=== PATIENT | female | born 1985 | race Caucasian/White ===

== ENCOUNTER 2016-10-18 11:11 | Emergency (ER) | payer MEDICAID ==
[2016-10-18 11:42] VITALS: TEMP 98.4; BMI 26.2
[2016-10-18] MEDS ORDERED: OXYCODONE HCL 5 MG TABLET PO ONE (13:53)
[2016-10-18] MEDS ORDERED: IBUPROFEN 600 MG TAB PO ONE (13:53)
[2016-10-18 14:15] LABS: AUTOMATED BASOPHIL 0.4 % (0-2); AUTOMATED EOSINOPHIL 1.6 % (0-5); AUTOMATED LYMPH 38.7 % (17-44); AUTOMATED MONOCYTE 5.5 % (3-10); AUTOMATED NEUTROPHIL 53.8 % (45-76); MPV 9.6 fL (7.4-10.4)
[2016-10-18 14:24] LABS: AMORPHOUS 2+
[2016-10-18 14:27] LABS: LEUKOCYTES/URINE NEG (NEGATIVE); NITRITE/URINE NEG (NEGATIVE); URINE OCCULT BLOOD 1+ (NEG/TRACE)
[2016-10-18 14:31] LABS: BLOOD UREA NITROGEN 14 MG/DL (7-17); CALCIUM 9.1 MG/DL (8.4-10.2); CALCULATED OSMOLALITY 271 MOs/Kg (270-290); CHLORIDE 104 mEq/L (98-107); GLUCOSE 86 MG/DL (70-99); SODIUM LEVEL 141 mEq/L (137-146); TOTAL PROTEIN 7.6 G/DL (6.3-8.2)
--- NOTE | 2016-10-18 15:32 | DIRPT ---
CLINICAL DATA: 31-year-old female with pelvic pain and abnormal bleeding in the middle of her cycle. Initial encounter. EXAM: TRANSABDOMINAL AND TRANSVAGINAL ULTRASOUND OF PELVIS DOPPLER ULTRASOUND OF OVARIES TECHNIQUE: Both transabdominal and transvaginal ultrasound examinations of the pelvis were performed. Transabdominal technique was performed for global imaging of the pelvis including uterus, ovaries, adnexal regions, and pelvic cul-de-sac. It was necessary to proceed with endovaginal exam following the transabdominal exam to visualize the ovaries. Color and duplex Doppler ultrasound was utilized to evaluate blood flow to the ovaries. COMPARISON: CT Abdomen and Pelvis 08/27/2008 FINDINGS: Uterus Measurements: 10.2 x 4.9 x 5.9 cm. No fibroids or other mass visualized. Endometrium Thickness: 7 mm. No focal abnormality visualized. Right ovary Measurements: 6.4 x 3.5 x 4.4 cm oval 6.4 cm simple cyst (image 38). Additional small follicles. Left ovary Measurements: 2.4 x 1.1 x 3.2 cm. Normal appearance/no adnexal mass. Pulsed Doppler evaluation of both ovaries demonstrates normal low-resistance arterial and venous waveforms. Other findings No abnormal free fluid. IMPRESSION: 1. No evidence of ovarian torsion. Uterus appears normal. 2. Large but simple appearing right ovarian cyst, 6.4 cm. Simple cysts regardless of patient age are almost certainly benign. In reproductive age women simple cysts between 5 and 7 cm are recommended for yearly ultrasound follow-up. This recommendation follows the consensus statement: Management of Asymptomatic Ovarian and Other Adnexal Cysts Imaged at US: Society of Radiologists in Ultrasound Consensus Conference Statement. Radiology 2010; 256:943-954. Electronically Signed By: Ene Nixon M.D. On: 10/18/2016 15:29
--- NOTE | 2016-10-18 15:33 | EDPRACDOC ---
- General Information Chief Complaint: Vaginal Bleeding Stated Complaint: VAGINAL BLEEDING Time Seen by Provider: 10/18/16 13:03 Information Source: Patient Home Medications: Home Medications Ibuprofen 600 mg PO TID #20 tablet 10/18/16 Oxycodone Immediate Release [Oxycodone Immediate Release (OxyIR)] 5 mg PO Q6H PRN #30 tab 10/18/16 Allergies/Adverse Reactions: Allergies Allergy/AdvReac Type Severity Reaction Status Date / Time Penicillins Allergy Hives* Verified 10/18/16 11:42 allantoin [From Orajel] AdvReac Severe Hives* Verified 10/18/16 11:42 benzalkonium chloride AdvReac Severe Hives* Verified 10/18/16 11:42 [From Orajel] benzocaine [From Orajel] AdvReac Severe Hives* Verified 10/18/16 11:42 carbamide peroxide AdvReac Severe Hives* Verified 10/18/16 11:42 [From Orajel] zinc chloride [From Orajel] AdvReac Severe Hives* Verified 10/18/16 11:42 - History of Present Illness Onset: 399 HPI: PT PRESENTS TODAY WITH LOWER ABDOMINAL PAIN X WEEKS. 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 STATES THAT SHE HAS HAD DYSPAREUNIA SINCE THEN. CURRENTLY ON MENSES TWICE THIS MONTH. DENIES FEVER, CP, SHOB, N/V/D, DYSURIA. PT TEARFUL AND VERY CONCERNED ABOUT CANCER. Description: Reports: Spontaneous, Menstrual Location: Reports: Internal Vagina Control Method: Reports: Other Pain Severity: Moderate Vaginal Bleeding Description: Reports: Dark Associated Signs & Symptoms: Reports: Dyspareunia, Vaginal Bleeding - Treatment Prior to ED Arrival Reported Medications/Treatment LEGAL INSTRUMENTS EXAMINER Ibuprofen/Acetaminophen (Dose/ MOTRIN 400MG-0400 Time) ED Past Medical History - History Reviewed Yes Nurses notes reviewed and agree except as marked - Patient Medical History Respiratory History: Reports: Asthma Psychological History: Reports: Anxiety, Bipolar Disorder. Denies: Depression - Social Medical History Smoking Status: Never smoker EDM Review of Systems - Review of Systems ROS Negative Except as Marked: Yes All systems reviewed and were negative except as marked Constitutional: No Symptoms Reported Respiratory: No Symptoms Reported Cardiovascular: No Symptoms Reported Gastrointestinal: Nausea, Pain Genitourinary: Bleeding, Other (HPV) Neurological: No Symptoms Reported Musculoskeletal: No Symptoms Reported Integumentary: No Symptoms Reported - Physical Exam Constitutional: Alert, Distress Oriented to: Time, Person, Place Last recorded Vital Signs: Last Vital Signs Temp 98.4 F 10/18/16 11:39 Pulse 84 10/18/16 11:39 Resp 18 10/18/16 11:39 BP 114/73 10/18/16 11:39 Pulse Ox 97 10/18/16 11:39 Oxygen Pulse Oxygen Saturation 97 O2 Device Oxygen Flow Rate Fraction of Inspired Oxygen ( FIO2) - HEENT Head: Normal Eye Exam: Normal Neck: Normal, Denies Pain, Midline - Respiratory/Cardiovascular Respiratory: Normal - CTA Cardiovascular: Normal - GI Palpation: Normal Tenderness: Moderate, RLQ, LLQ - Bladder: Normal External: Normal Vagina: Normal Cervix: Tenderness, Other (NOTED VESICULAR LIKE LESIONS ON THE CERVICAL OS; NO BLEEDING NOTED) Adnexa: Bilateral: Tender - Musculoskeletal Back: Normal Extremities: Normal - Integumentary Skin: Normal Lymphatics: Normal - Neurologic Cerebellar: Normal Mood Description: Normal Thought: Coherent Perception: Normal ED Vaginal Exam External: Normal Vaginal Exam: Normal Vaginal Lesions: None Vaginal Discharge: None Cervix: Tenderness, Other Uterus: Normal size Adnexa: Bilateral, Tenderness - Results 10/18/16 14:00 10/18/16 14:00 WBC 8.5 xk/uL (3.8-10.8) 10/18/16 14:00 RBC 4.41 xM/uL (4.20-5.40) 10/18/16 14:00 Hgb 13.3 g/dL (12.0-16.0) 10/18/16 14:00 Hct 39.3 % (36-47) 10/18/16 14:00 MCV 89 fL (81-99) 10/18/16 14:00 MCH 30.2 pg (27-32) 10/18/16 14:00 MCHC 33.9 g/dl (33-36) 10/18/16 14:00 RDW 14.5 % (11.5-14.5) 10/18/16 14:00 Plt Count 279 xk/uL (130-400) 10/18/16 14:00 MPV 9.6 fL (7.4-10.4) 10/18/16 14:00 Neut % (Auto) 53.8 % (45-76) 10/18/16 14:00 Lymph % (Auto) 38.7 % (17-44) 10/18/16 14:00 [place] % (Auto) 5.5 % (3-10) 10/18/16 14:00 Eos % (Auto) 1.6 % (0-5) 10/18/16 14:00 Baso % (Auto) 0.4 % (0-2) 10/18/16 14:00 Absolute Neuts (auto) 4.51 xk/uL (1.7-8.2) 10/18/16 14:00 Absolute Lymphs (auto) 3.23 xk/uL (0.65-4.75) 10/18/16 14:00 Sodium 141 mEq/L (137-146) 10/18/16 14:00 Potassium 4.1 mEq/L (3.5-5.1) 10/18/16 14:00 Chloride 104 mEq/L (98-107) 10/18/16 14:00 Carbon Dioxide 26 mMOL/L (22-33) 10/18/16 14:00 Anion Gap 15 mEq/L (8-16) 10/18/16 14:00 BUN 14 MG/DL (7-17) 10/18/16 14:00 Creatinine 0.90 MG/DL (0.52-1.04) 10/18/16 14:00 Estimated GFR (MDRD) > 60 mL/min (>=60) 10/18/16 14:00 Glucose 86 MG/DL (70-99) 10/18/16 14:00 Calculated Osmolality 271 MOs/Kg (270-290) 10/18/16 14:00 Calcium 9.1 MG/DL (8.4-10.2) 10/18/16 14:00 Total Bilirubin 0.4 MG/DL (0.2-1.3) 10/18/16 14:00 AST 38 IU/L (14-36) H 10/18/16 14:00 ALT 51 IU/L (9-52) 10/18/16 14:00 Alkaline Phosphatase 81 IU/L (38-126) 10/18/16 14:00 Total Protein 7.6 G/DL (6.3-8.2) 10/18/16 14:00 Albumin 4.4 G/DL (3.5-5.0) 10/18/16 14:00 Urine Color Yellow 10/18/16 14:00 Urine Clarity Cldy 10/18/16 14:00 Urine pH 7.0 (5.0-8.0) 10/18/16 14:00 Ur Specific [place] 1.010 (1.003-1.035) 10/18/16 14:00 Urine Protein Neg (NEG/TRACE) 10/18/16 14:00 Urine Glucose (UA) Neg (NEGATIVE) 10/18/16 14:00 Urine Ketones Neg (NEGATIVE) 10/18/16 14:00 Urine Occult Blood 1+ (NEG/TRACE) H 10/18/16 14:00 Urine Nitrite Neg (NEGATIVE) 10/18/16 14:00 Urine Bilirubin Neg (NEGATIVE) 10/18/16 14:00 Urine Urobilinogen 0.2 MG/DL (0-1) 10/18/16 14:00 Ur Leukocyte Esterase Neg (NEGATIVE) 10/18/16 14:00 Urine RBC 2-5 (0-5) 10/18/16 14:00 Ur Epithelial Cells 1+ 10/18/16 14:00 Amorphous Sediment 2+ 10/18/16 14:00 Urine Bacteria Few (NEG/FEW) 10/18/16 14:00 Urine Test Neg (NEGATIVE) 10/18/16 14:00 Microbiology 10/18/16 14:00 Trichomonas Wet Mount - Final Vaginal 10/18/16 14:00 ARVIND Preparation - Final Vaginal Lab Results 10/18/16 10/18/16 10/18/16 14:00 14:00 14:00 WBC 8.5 RBC 4.41 Hgb 13.3 Hct 39.3 MCV 89 MCH 30.2 MCHC 33.9 RDW 14.5 Plt Count 279 MPV 9.6 Neut % (Auto) 53.8 Lymph % (Auto) 38.7 [place]ades % (Auto) 5.5 Eos % (Auto) 1.6 Baso % (Auto) 0.4 Absolute Neuts (auto) 4.51 Absolute Lymphs (auto) 3.23 Sodium Potassium Chloride Carbon Dioxide Anion Gap BUN Creatinine Estimated GFR (MDRD) Glucose Calculated Osmolality Calcium Total Bilirubin AST ALT Alkaline Phosphatase Total Protein Albumin Urine Color Yellow Urine Clarity Cldy Urine pH 7.0 Ur Specific [place] 1.010 Urine Protein Neg Urine Glucose (UA) Neg Urine Ketones Neg Urine Occult Blood 1+ H Urine Nitrite Neg Urine Bilirubin Neg Urine Urobilinogen 0.2 Ur Leukocyte Esterase Neg Urine RBC 2-5 Ur Epithelial Cells 1+ Amorphous Sediment 2+ Urine Bacteria Few Urine Test Neg 10/18/16 14:00 WBC RBC Hgb Hct MCV MCH MCHC RDW Plt Count MPV Neut % (Auto) Lymph % (Auto) Glades % (Auto) Eos % (Auto) Baso % (Auto) Absolute Neuts (auto) Absolute Lymphs (auto) Sodium 141 Potassium 4.1 Chloride 104 Carbon Dioxide 26 Anion Gap 15 BUN 14 Creatinine 0.90 Estimated GFR (MDRD) > 60 Glucose 86 Calculated Osmolality 271 Calcium 9.1 Total Bilirubin 0.4 AST 38 H ALT 51 Alkaline Phosphatase 81 Total Protein 7.6 Albumin 4.4 Urine Color Urine Clarity Urine pH Ur Specific [place] Urine Protein Urine Glucose (UA) Urine Ketones Urine Occult Blood Urine Nitrite Urine Bilirubin Urine Urobilinogen Ur Leukocyte Esterase Urine RBC Ur Epithelial Cells Amorphous Sediment Urine Bacteria Urine Test - Additional Information PT EDUCATED ON THE NEED FOR COLPOSCOPY AND FOLLOW UP REGARDING NEW HPV DIAGNOSIS. Decision Time to Discharge: 15:44 - Departure Disposition: Home Condition: Stable Final Diagnosis: Ovarian cyst Qualifiers: Laterality: right Qualified Code(s): N83.201 - Unspecified ovarian cyst, right side Instructions: Ovarian Cyst (ED) Education/Counseling Given To: Patient Education/Counseling Given Regarding: Diagnosis, Treatment, Follow Up Referrals: Patricio Epstein Jr, DO [Primary Care Provider] - One Week Machelle Armendariz DO [Staff Physician] - One Week Prescriptions: Ibuprofen 600 mg PO TID #20 tablet Oxycodone Immediate Release [Oxycodone Immediate Release (OxyIR)] 5 mg PO Q6H PRN #30 tab PRN Reason: Pain Additional Instructions: REST AND PLENTY OF FLUIDS. IT IS PERTINENT THAT YOU FOLLOW UP WITH [facility] FOR COLPOSCOPY.
[2016-10-18 16:06] VITALS: BP 136/74; PULSE 68
[2016-10-22 05:38] LABS: CHLAMY BY NUCLEIC ACID AMP Negative (Negative)
[2016-10-22 06:43] LABS: GC BY NUCLEIC ACID AMP Negative (Negative)
== END 2016-10-18 16:02 | disposition home or self-care (01) ==
LOC: ED 11:11
DX: N83.201 Unspecified ovarian cyst, right side (principal)
CPT/HCPCS: 36415; 76830; 76856; 80053; 81001; 81025; 85025; 87210; 87220; 87491; 87591; 93975; 99283; J3490